=== PATIENT | female | born 1965 | race Caucasian/White ===

== ENCOUNTER → 2020-11-17 | Outpatient (CLI) | payer BC ==
--- NOTE | 2020-11-17 16:04 | Diagnostic Imaging Report ---
PROCEDURE: CT chest without contrast. TECHNIQUE: Multiple contiguous axial images were obtained through the chest without the use of intravenous contrast. Auto Exposure Controls were utilized during the CT exam to meet ALARA standards for radiation dose reduction. INDICATION: Cough, history of Covid. COMPARISON: There are no prior exams available for comparison. FINDINGS: The heart size is at the upper limits of normal. Coronary artery calcifications are noted. The aorta is not abnormally dilated. There is no obvious mediastinal or hilar adenopathy. The left lobe of the thyroid appears to be surgically absent. Correlation with the patient's surgical history would be recommended. The right lobe of the thyroid is generally unremarkable although difficult to evaluate due to streak artifact. The lungs are generally clear. There is no sign of failure, pneumonia, or pleural effusion to indicate an acute abnormality. There is a 5 mm noncalcified nodule along the posterior half of the superior segment of the left lower lobe (image 47 series 2). This finding does not have an aggressive appearance. Even so, unless there are previous studies available to demonstrate that this parenchymal density is stable, then a short-term (6 month) followup CT chest exam would be recommended. There is no other parenchymal lung mass identified. There is no obvious breast mass. The sections through the upper abdomen fail to show any sign of an acute abnormality. The bone windows are unremarkable for an acute fracture or for a destructive lesion. There is a mild compression deformity of T12. I suspect this is long-standing in nature. IMPRESSION: 1. There is no evidence for an acute cardiopulmonary abnormality. 2. The small nodular density in the posterior half of the superior segment of the left lower lobe is of uncertain etiology although is most likely benign. Recommendations as above. 3. There is borderline cardiomegaly and coronary artery disease. 4. The compression deformity of T12 is most likely long-standing in nature. Dictated by: Dictated on workstation # [id number]
== END ==
LOC: RAD 15:45
PROVIDERS: ATTEND Nurse Practitioner Family
DX: I25.10 Atherosclerotic heart disease of native coronary artery without angina pectoris (principal); J45.40 Moderate persistent asthma, uncomplicated; R91.8 Other nonspecific abnormal finding of lung field; R93.89 Abnormal findings on diagnostic imaging of other specified body structures; Z86.16 Personal history of COVID-19
CPT/HCPCS: 71250

== ENCOUNTER → 2021-01-08 | Outpatient (CLI) | payer BC ==
--- NOTE | 2021-01-08 15:43 | Diagnostic Imaging Report ---
INDICATION: Left nipple bloody discharge. Correlation is made with prior mammogram of 02/26/2020. 2-D and 3-D bilateral diagnostic mammography was performed with CAD. Both breasts are heterogeneously dense, limiting the sensitivity of mammography. Occasional benign calcifications are noted. No mass or malignant appearing microcalcifications are seen. Axillae are unremarkable. IMPRESSION: BI-RADS Category 0 No mammographic features suspicious for malignancy are identified. Even so, directed sonographic interrogation of the retroareolar left breast is recommended and will be performed today. ACR BI-RADS Category 0: Incomplete. (Needs additional imaging evaluation). Result letter will be mailed to the patient. Note: At least 10% of breast cancer is not imaged by mammography. Dictated by: Dictated on workstation # [id number]
--- NOTE | 2021-01-08 16:00 | Diagnostic Imaging Report ---
INDICATION: Bloody nipple discharge. Correlation is made with diagnostic mammogram earlier same day. Sonographic interrogation retroareolar left breast was performed. No sonographic abnormality is seen. No solid or cystic masses detected. IMPRESSION: BI-RADS Category 1 No sonographic abnormality is identified. If symptoms persist, consideration could be given to performance of an MRI of the breasts to evaluate for retroareolar lesion. ACR BI-RADS Category 1: Negative. Result letter will be mailed to the patient. Note: At least 10% of breast cancer is not imaged by mammography. Dictated by: Dictated on workstation # [id number]
== END ==
LOC: RAD 14:15
PROVIDERS: ATTEND Pediatrics
DX: N64.52 Nipple discharge (principal)
CPT/HCPCS: 76642; 77066; G0279; 77062

== ENCOUNTER → 2021-01-19 | Outpatient (CLI) | payer BC ==
[~2021-01-19] MED LIST: GADOBUTROL 15 MMOL/15 ML (GADAVIST) VIAL IV ONE
--- NOTE | 2021-01-19 12:15 | Diagnostic Imaging Report ---
TECHNIQUE: Utilizing 1.5 Yvonne magnet, patient was placed in a prone position with 8-channel dual breast coil utilized. Axial STIR precontrasted image and axial T1 fat-sat postcontrast high-resolution images obtained. Axial T2-weighted images precontrast, bilaterally, as well. Axial vibrant temporal images were obtained pre and post contrast with bolus technique utilized of gadolinium. Images are postcontrast immediately and subsequently for 7 minutes. Pre and post contrasted images are then evaluated with Microarrays for evaluation of possible angiogenesis. Sagittal postcontrast imaging also obtained and reviewed. INDICATION: Left breast bloody nipple discharge COMPARISON: 01/08/2021 FINDINGS: The bilateral breasts symmetric mild background glandularity. The bilateral breasts demonstrate mild background enhancement. No significant axillary or internal mammary adenopathy. Minimally visualized portions of the upper abdomen and chest wall are unremarkable. A 1.1 x 0.9 cm enhancing mass is identified within the left nipple extending into the 6-7 o'clock location of the left breast. A few additional scattered foci of enhancement are seen within the left breast. No additional suspicious enhancing mass or non-mass enhancement within the left breast. No suspicious enhancing mass or non-mass enhancement within the right breast. IMPRESSION: 1.1 cm enhancing mass within the left nipple extending into the retroareolar region of the left breast at 6-7 o'clock is suspicious for malignancy. Recommend 2nd look ultrasound of this region for further evaluation. If no abnormality is identified at this location on 2nd look ultrasound, then surgical consultation with surgical excision would be recommended as given location, this would not be amenable to MR guided biopsy. BI-RADS Category 4: Suspicious of malignancy, biopsy is recommended. Follow-up: 2nd look ultrasound of the left retroareolar location extending to the 6-7 o'clock location is recommended for further evaluation. If no focal abnormality is identified at this location, then surgical consultation with eventual excision would be recommended, particularly given provided history of bloody left nipple discharge. Dictated by: Dictated on workstation # [id number]
== END ==
LOC: RAD 08:00
PROVIDERS: ATTEND Pediatrics
DX: N63.20 Unspecified lump in the left breast, unspecified quadrant (principal)
CPT/HCPCS: 77049

== ENCOUNTER → 2021-04-20 | Outpatient (CLI) | payer BC ==
--- NOTE | 2021-04-20 11:31 | Diagnostic Imaging Report ---
EXAMINATION: CT chest without contrast. TECHNIQUE: Multiple contiguous axial images were obtained through the chest without the use of intravenous contrast. All CT scans use one or more of the following dose optimizing techniques: automated exposure control, MA and/or KvP adjustment based on patient size and exam type or iterative reconstruction. HISTORY: Pulmonary nodule COMPARISON: 11/18/2020 FINDINGS: There is no edema or pneumonia. No pleural effusion. No pneumothorax. There is a stable 3 mm average diameter nodule in the superior segment left lower lobe. No other nodules are seen. There is no axillary or supraclavicular lymphadenopathy. There is no mediastinal lymphadenopathy. Heart size is normal. There are mild coronary artery calcifications. No pericardial effusion. Aorta is normal in caliber. Limited views of the upper abdomen are unremarkable. There are no suspicious osseus lesions. There is a focus of gas in the left breast, correlate for recent procedure. IMPRESSION: 1. Stable 3 mm average diameter nodule in the superior segment of the left lower lobe. An additional six-month follow-up is recommended to ensure 12 months of stability. 2. Focus of gas in left breast, correlate for any recent procedure. Dictated by: Dictated on workstation # [id number]
== END ==
LOC: RAD 10:15
PROVIDERS: ATTEND Pediatrics
DX: R91.1 Solitary pulmonary nodule (principal)
CPT/HCPCS: 71250

== ENCOUNTER → 2021-11-02 | Outpatient (CLI) | payer BC ==
[~2021-11-02] MED LIST changes: -GADOBUTROL 15 MMOL/15 ML (GADAVIST) VIAL IV ONE; +RT-ALBUTEROL SULF 2.5 MG/3 ML PRE-MIX VIAL INH ONE
--- NOTE | 2021-11-02 09:28 | Diagnostic Imaging Report ---
EXAMINATION: CT chest without contrast. TECHNIQUE: Multiple contiguous axial images were obtained through the chest without the use of intravenous contrast. All CT scans use one or more of the following dose optimizing techniques: automated exposure control, MA and/or KvP adjustment based on patient size and exam type or iterative reconstruction. HISTORY: PULMONARY NODULE COMPARISON: 04/20/2021 FINDINGS: Thyroid: Left lobe thyroid gland may be surgically absent. Heterogeneous appearance of the right lobe. Mediastinum: Heart size is normal without significant pericardial effusion. The aorta is normal in caliber. No suspicious lymphadenopathy. Lungs and airways: The lungs are clear without consolidation, pleural effusion, or pneumothorax. Stable 0.3 cm pulmonary nodule within the left lower lobe, unchanged from 04/20/2021. No new suspicious pulmonary lesion. The airways are normal. Upper abdomen: The subphrenic structures are normal. Musculoskeletal: Degenerative changes of the spine without suspicious osseous lesion or compression fracture. IMPRESSION: 1. Stable 0.3 cm left lower lobe pulmonary nodule. If patient is low risk for malignancy, no further follow-up is needed. If patient is high-risk, additional CT follow-up in 6-12 months would be recommended. 2. No other acute abnormality in the chest. Dictated by: Dictated on workstation # [id number]
== END ==
LOC: RT 08:00
PROVIDERS: ATTEND Pediatrics
DX: R91.1 Solitary pulmonary nodule (principal); U09.9 Post COVID-19 condition, unspecified
CPT/HCPCS: 71250; 94060; 94726; 94729

== ENCOUNTER → 2022-09-08 | Outpatient (CLI) | payer BC, OTHER ==
[~2022-09-08] VITALS: Ht 157.5 cm; Wt 90.5 kg
[~2022-09-08] MED LIST changes: +LIDOCAINE 1% INJ 30 ML (XYLOCAINE) VIAL INJ ONE; -RT-ALBUTEROL SULF 2.5 MG/3 ML PRE-MIX VIAL INH ONE
--- NOTE | 2022-09-08 10:21 | Diagnostic Imaging Report ---
INDICATION: Right lobe thyroid nodule. PROCEDURE: The patient presents for ultrasound-guided fine-needle aspiration. The patient was brought to the procedure room, placed on the table in the supine position. Ultrasound imaging of the neck was performed to evaluate appropriate entry site. The right neck was then prepped and draped in the usual sterile fashion. Small amount of 1% lidocaine was utilized for local anesthesia. A total of 4 passes were made into the solid nodule in the right lobe of the thyroid utilizing 25-gauge needles and fine-needle aspiration technique. [place] were removed and hemostasis was obtained. Patient tolerated the procedure well and left the department in stable condition. IMPRESSION: Successful ultrasound-guided fine-needle aspiration of the dominant solid nodule right lobe of the thyroid. Pathology results are currently pending. Dictated by: Dictated on workstation # [id number]
== END ==
LOC: RAD 08:21
PROVIDERS: ATTEND Otolaryngology
DX: E04.1 Nontoxic single thyroid nodule (principal)
CPT/HCPCS: 10005